=== PATIENT | male | born 1995 | race Caucasian/White ===

== ENCOUNTER 2018-07-07 16:29 | Emergency (ER) | payer OTHER ==
[~2018-07-07] VITALS: Ht 180.3 cm; Wt 111.6 kg
[2018-07-07 17:28] VITALS: Ht 180.3 cm; Wt 111.6 kg
[2018-07-07 19:50] VITALS: BP 141/79
== END 2018-07-07 19:50 | disposition home or self-care (01) ==
LOC: ED 16:29
DX: S63.91XA Sprain of unspecified part of right wrist and hand, initial encounter (principal); I10 Essential (primary) hypertension; W22.8XXA Striking against or struck by other objects, initial encounter; Y93.89 Activity, other specified; Y92.89 Other specified places as the place of occurrence of the external cause; Y99.8 Other external cause status
CPT/HCPCS: A4570

== ENCOUNTER 2018-12-31 18:22 | Emergency (ER) | payer OTHER ==
[~2018-12-31] VITALS: Ht 180.3 cm; Wt 115.7 kg
[2018-12-31 18:33] VITALS: Ht 180.3 cm; Wt 115.7 kg
[2018-12-31 19:25] VITALS: BP 149/96
== END 2018-12-31 19:25 | disposition home or self-care (01) ==
LOC: ED 18:22
DX: S69.91XA Unspecified injury of right wrist, hand and finger(s), initial encounter (principal); I10 Essential (primary) hypertension; W18.39XA Other fall on same level, initial encounter; Y93.67 Activity, basketball; Y92.310 Basketball court as the place of occurrence of the external cause; Y99.8 Other external cause status